=== PATIENT | male | born 1950 | race African-American/Black ===

== ENCOUNTER 2016-10-27 10:45 | Inpatient (IN) | payer MEDICARE, MEDICAID ==
[~2016-10-27] VITALS: Ht 165.1 cm; Wt 63.9 kg
[~2016-10-27 10:45] MED LIST: ASPI81 PO; BENZ1TAB10 PO; DIVA500T35 PO; PANT40TA25 PO; RISP2 PO
[2016-10-27 11:02] LABS: GLUCOSE,POINT OF CARE 89 MG/DL (70-110)
[2016-10-27] MEDS ORDERED: QUET300T2 PO (11:32)
[2016-10-27] MEDS ORDERED: LISI-662 PO (11:32)
[2016-10-27 11:45] LABS: BASOPHILS % (AUTO) 0.9 % (0.0-2.0); EOSINOPHILS % (AUTO) 2.4 % (1.0-6.0); HEMATOCRIT 46.7 % (41-53); LYMPHOCYTES # (AUTO) 2.9 K/uL (1.0-4.8); LYMPHOCYTES % (AUTO) 53.3 % (22.0-44.0); MEAN CORPUSCULAR HEMOGLOBIN 28.9 pg (26.0-34.0); MEAN CORPUSCULAR HGB CONC 32.2 G/dL (31.0-37.0); MEAN CORPUSCULAR VOLUME 90 fL (80-100); MONOCYTES # (AUTO) 0.5 K/uL (0.1-1.0); MONOCYTES % (AUTO) 8.8 % (2.0-9.0); NEUTROPHILS # (AUTO) 1.9 K/uL (1.8-7.7); NEUTROPHILS % (AUTO) 34.6 % (40.0-70.0); PLATELET COUNT (AUTO) 168 K/uL (150-450); RED BLOOD CELL COUNT(AUTO) 5.19 MIL/uL (4.50-5.90); RED CELL DISTRIBUTION WIDTH 14.2 % (11.5-14.5); WHITE BLOOD COUNT (AUTO) 5.5 K/uL (4.5-11.0)
[2016-10-27 11:56] LABS: ANION GAP 9 mmol/L (8-16); CALCIUM, TOTAL 9.1 mg/dL (8.8-10.5); CARBON DIOXIDE 24 mmol/L (22-29); CHLORIDE 103 mmol/L (98-107); CREATININE 1.04 mg/dL (0.60-1.30); GLOMERULAR FILTR. RATE CALC > 60 mL/min (>60); POTASSIUM 4.6 mmol/L (3.5-5.1); SODIUM SERUM 136 mmol/L (136-145); UREA NITROGEN, BLOOD 19 mg/dL (7-18)
[2016-10-27 12:02] LABS: ALANINE AMINOTRANSFERASE 59 U/L (12-78); ALBUMIN 3.5 g/dL (3.4-5.0); ASPARTATE AMINOTRANSFERASE 46 U/L (15-37); BILIRUBIN,TOTAL 0.3 mg/dL (0.1-1.0); TOTAL PROTEIN, SERUM 8.3 g/dL (6.4-8.2)
[2016-10-27] MEDS ORDERED: HALOPERIDOL 5 MG TABLET PO PRN (13:15)
[2016-10-27 18:19] VITALS: BP 145/73
[2016-10-27] MEDS: LORazepam 2 MG TABLET PO PRN (21:05)
[2016-10-28 03:30] VITALS: BP 152/75
[2016-10-28 08:00] VITALS: BP 124/67
[2016-10-28] MEDS ORDERED: ONDANSETRON HCL 4 MG TABLET PO PRN (08:30)
[2016-10-28] MEDS ORDERED: MAGNESIUM HYDROXIDE SUSPENSION 30 ML UDCUP PO PRN (08:30)
[2016-10-28] MEDS ORDERED: BACITRACIN 28.4 GM OINTMENT TP PRN (08:30)
[2016-10-28] MEDS ORDERED: ACETAMINOPHEN 325 MG TABLET PO PRN (08:30)
[2016-10-28] MEDS ORDERED: BENZOCAINE/MENTHOL LOZENGE MM PRN (08:30)
[2016-10-28] MEDS ORDERED: LOPERAMIDE HCL 2 MG CAPSULE PO PRN (08:30)
[2016-10-28] MEDS ORDERED: ALBUTEROL SULFATE HFA 90 MCG/PUFF 8 GM INHALER IH PRN (08:30)
[2016-10-28] MEDS ORDERED: CloNIDine HCL 0.1 MG TABLET PO PRN (08:30)
[2016-10-28] MEDS ORDERED: PETROLATUM,WHITE 71 GM JELLY TP PRN (08:30)
[2016-10-28] MEDS ORDERED: MAG HYDROX/AL HYDROX/SIMETH ES 30 ML SUSPENSION UDCUP PO PRN (08:30)
[2016-10-28] MEDS: ASPIRIN 81 MG CHEWABLE TABLET PO SCH (09:03)
[2016-10-28] MEDS: PANTOPRAZOLE SODIUM 40 MG DR TABLET PO SCH (09:03)
[2016-10-28] MEDS: LISINOPRIL 20 MG TABLET PO SCH (09:04)
[2016-10-28] MEDS: RisperiDONE 2 MG TABLET PO SCH (18:05)
[2016-10-28] MEDS: DIVALPROEX SODIUM 500 MG DR TABLET PO SCH (18:05)
[2016-10-28] MEDS: BENZTROPINE MESYLATE 1 MG TABLET PO SCH (18:06)
[2016-10-28 19:29] VITALS: BP 121/77
[2016-10-29 05:21] VITALS: BP 105/66
[2016-10-29 09:00] VITALS: BP 98/67
[2016-10-29] MEDS: LISINOPRIL 20 MG TABLET PO SCH (09:48)
[2016-10-29] MEDS: DIVALPROEX SODIUM 500 MG DR TABLET PO SCH ×2 (09:48→17:25)
[2016-10-29] MEDS: RisperiDONE 2 MG TABLET PO SCH ×2 (09:48→17:25)
[2016-10-29] MEDS: ASPIRIN 81 MG CHEWABLE TABLET PO SCH (09:49)
[2016-10-29] MEDS: BENZTROPINE MESYLATE 1 MG TABLET PO SCH ×2 (09:49→17:24)
[2016-10-29] MEDS: PANTOPRAZOLE SODIUM 40 MG DR TABLET PO SCH (09:49)
[2016-10-29 17:14] VITALS: BP 111/58
[2016-10-30 09:00] VITALS: BP 152/85
[2016-10-30] MEDS: RisperiDONE 2 MG TABLET PO SCH ×2 (09:45→17:02)
[2016-10-30] MEDS: LISINOPRIL 20 MG TABLET PO SCH (09:46)
[2016-10-30] MEDS: BENZTROPINE MESYLATE 1 MG TABLET PO SCH ×2 (09:46→17:02)
[2016-10-30] MEDS: ASPIRIN 81 MG CHEWABLE TABLET PO SCH (09:46)
[2016-10-30] MEDS: PANTOPRAZOLE SODIUM 40 MG DR TABLET PO SCH (09:46)
[2016-10-30] MEDS: DIVALPROEX SODIUM 500 MG DR TABLET PO SCH ×2 (09:46→17:02)
[2016-10-30 19:04] VITALS: BP 123/76
[2016-10-31] MEDS: PANTOPRAZOLE SODIUM 40 MG DR TABLET PO SCH (08:58)
[2016-10-31] MEDS: DIVALPROEX SODIUM 500 MG DR TABLET PO SCH ×2 (08:58→16:21)
[2016-10-31] MEDS: RisperiDONE 2 MG TABLET PO SCH ×2 (08:58→16:21)
[2016-10-31] MEDS: BENZTROPINE MESYLATE 1 MG TABLET PO SCH ×2 (08:58→16:22)
[2016-10-31] MEDS: ASPIRIN 81 MG CHEWABLE TABLET PO SCH (08:59)
[2016-10-31] MEDS: LISINOPRIL 20 MG TABLET PO SCH (08:59)
[2016-10-31 09:00] VITALS: BP 118/70
[2016-10-31 16:30] VITALS: BP 106/68
[2016-11-01 04:51] VITALS: BP 110/72
[2016-11-01] MEDS: LISINOPRIL 20 MG TABLET PO SCH (09:00)
[2016-11-01] MEDS: ASPIRIN 81 MG CHEWABLE TABLET PO SCH (09:14)
[2016-11-01] MEDS: PANTOPRAZOLE SODIUM 40 MG DR TABLET PO SCH (09:15)
[2016-11-01] MEDS: BENZTROPINE MESYLATE 1 MG TABLET PO SCH ×2 (09:15→16:36)
[2016-11-01] MEDS: RisperiDONE 2 MG TABLET PO SCH ×2 (09:15→16:36)
[2016-11-01] MEDS: DIVALPROEX SODIUM 500 MG DR TABLET PO SCH ×2 (09:15→16:36)
[2016-11-01 09:17] VITALS: BP 106/64
[2016-11-01] MEDS: IBUPROFEN 600 MG TABLET PO PRN ×2 (09:17→21:56)
[2016-11-01 18:24] VITALS: BP 114/71
[2016-11-01 22:01] VITALS: BP 119/69
[2016-11-02 08:07] VITALS: BP 127/79
[2016-11-02] MEDS: LISINOPRIL 20 MG TABLET PO SCH (09:07)
[2016-11-02] MEDS: PANTOPRAZOLE SODIUM 40 MG DR TABLET PO SCH (09:07)
[2016-11-02] MEDS: DIVALPROEX SODIUM 500 MG DR TABLET PO SCH ×2 (09:08→16:08)
[2016-11-02] MEDS: ASPIRIN 81 MG CHEWABLE TABLET PO SCH (09:08)
[2016-11-02] MEDS: BENZTROPINE MESYLATE 1 MG TABLET PO SCH ×2 (09:08→16:09)
[2016-11-02] MEDS: RisperiDONE 2 MG TABLET PO SCH ×2 (09:08→16:08)
[2016-11-02 16:10] VITALS: BP 107/66
[2016-11-02] MEDS: IBUPROFEN 600 MG TABLET PO PRN (16:12)
[2016-11-02] MEDS: ZOLPIDEM TARTRATE 10 MG TABLET PO PRN (21:38)
[2016-11-03] MEDS: ASPIRIN 81 MG CHEWABLE TABLET PO SCH (08:57)
[2016-11-03] MEDS: BENZTROPINE MESYLATE 1 MG TABLET PO SCH ×2 (08:57→16:36)
[2016-11-03] MEDS: LISINOPRIL 20 MG TABLET PO SCH (08:58)
[2016-11-03] MEDS: RisperiDONE 2 MG TABLET PO SCH ×2 (08:58→16:36)
[2016-11-03] MEDS: PANTOPRAZOLE SODIUM 40 MG DR TABLET PO SCH (08:58)
[2016-11-03] MEDS: DIVALPROEX SODIUM 500 MG DR TABLET PO SCH ×2 (08:58→16:36)
[2016-11-03 08:59] VITALS: BP 122/57
[2016-11-03] MEDS: IBUPROFEN 600 MG TABLET PO PRN (08:59)
[2016-11-03 17:17] VITALS: BP 139/87
[2016-11-03] MEDS: ZOLPIDEM TARTRATE 10 MG TABLET PO PRN (21:00)
[2016-11-04 09:02] VITALS: BP 117/70
[2016-11-04] MEDS: RisperiDONE 2 MG TABLET PO SCH (09:24)
[2016-11-04] MEDS: ASPIRIN 81 MG CHEWABLE TABLET PO SCH (09:24)
[2016-11-04] MEDS: DIVALPROEX SODIUM 500 MG DR TABLET PO SCH (09:24)
[2016-11-04] MEDS: LISINOPRIL 20 MG TABLET PO SCH (09:24)
[2016-11-04] MEDS: BENZTROPINE MESYLATE 1 MG TABLET PO SCH (09:24)
[2016-11-04] MEDS: LORazepam 2 MG TABLET PO PRN (09:24)
[2016-11-04] MEDS: PANTOPRAZOLE SODIUM 40 MG DR TABLET PO SCH (09:24)
[2016-11-04] MEDS ORDERED: DIVA500T35 PO (14:27)
[2016-11-04] MEDS ORDERED: BENZ1TAB10 PO (14:27)
[2016-11-04] MEDS ORDERED: PANT40TA25 PO (14:27)
[2016-11-04] MEDS ORDERED: RISP2 PO (14:27)
[2016-11-04] MEDS ORDERED: ASPI81 PO (14:27)
== END 2016-11-04 15:17 | disposition home or self-care (01) | DRG 750 ==
LOC: EMS 10:47 → EEVIPCON 10:47 → AHU 16:06 → 3EI 20:32
PROVIDERS: ADMIT Psychiatry & Neurology Psychiatry; ATTEND Psychiatry & Neurology Psychiatry
DX: F25.1 Schizoaffective disorder, depressive type (principal); I49.5 Sick sinus syndrome; R45.851 Suicidal ideations; G83.9 Paralytic syndrome, unspecified; E11.9 Type 2 diabetes mellitus without complications; I10 Essential (primary) hypertension; F12.90 Cannabis use, unspecified, uncomplicated; J44.9 Chronic obstructive pulmonary disease, unspecified; K21.9 Gastro-esophageal reflux disease without esophagitis; K59.00 Constipation, unspecified; F17.210 Nicotine dependence, cigarettes, uncomplicated; F60.9 Personality disorder, unspecified; Z71.6 Tobacco abuse counseling; Z86.73 Personal history of transient ischemic attack (TIA), and cerebral infarction without residual deficits; Z71.51 Drug abuse counseling and surveillance of drug abuser; Z91.14 Patient's other noncompliance with medication regimen; Z95.0 Presence of cardiac pacemaker; Z79.899 Other long term (current) drug therapy; Z56.0 Unemployment, unspecified; Z79.82 Long term (current) use of aspirin; Z72.89 Other problems related to lifestyle; Z71.41 Alcohol abuse counseling and surveillance of alcoholic; Z28.21 Immunization not carried out because of patient refusal; Z83.3 Family history of diabetes mellitus; Z82.49 Family history of ischemic heart disease and other diseases of the circulatory system
CPT/HCPCS: 82962; 99285; G0480; J3535; Q0162

== ENCOUNTER 2016-11-11 11:08 | Emergency (ER) | payer MEDICARE, OTHER ==
[~2016-11-11] VITALS: Ht 167.6 cm; Wt 63.0 kg
[~2016-11-11 11:08] MED LIST changes: +LISI-662 PO
[2016-11-11] MEDS ORDERED: LIDOCAINE HCL BUFFERED 1% 20 ML VIAL INJ ONE (12:00)
[2016-11-11 12:02] LABS: GLUCOSE,POINT OF CARE 103 MG/DL (70-110)
[2016-11-11 12:45] VITALS: BP 146/92
[2016-11-11] MEDS ORDERED: BACITRACIN 0.9 GM PACKET OINTMENT TP ONE (12:45)
== END 2016-11-11 13:17 | disposition home or self-care (01) ==
LOC: EMS 11:12
DX: S01.81XA Laceration without foreign body of other part of head, initial encounter (principal); E11.9 Type 2 diabetes mellitus without complications; I10 Essential (primary) hypertension; F17.210 Nicotine dependence, cigarettes, uncomplicated; Z79.82 Long term (current) use of aspirin; Y09 Assault by unspecified means; Y92.89 Other specified places as the place of occurrence of the external cause; Y99.8 Other external cause status
CPT/HCPCS: 12011; 82962; 99283; J3490

== ENCOUNTER 2017-06-08 11:29 | Inpatient (IN) | payer MEDICARE, OTHER ==
[~2017-06-08] VITALS: Ht 165.1 cm; Wt 71.2 kg
[2017-06-08] MEDS ORDERED: SODIUM CHLORIDE 0.9% 1,000 ML IV ONE ×3 (12:15→14:30)
[2017-06-08] MEDS ORDERED: NALOXONE HCL 1 MG/ML 2 ML SYG IVP ONE (12:15)
[2017-06-08 13:07] LABS: BASOPHILS # (AUTO) 0.03 K/uL (0.00-0.20); BASOPHILS % (AUTO) 0.6 % (0.0-2.0); EOSINOPHILS # (AUTO) 0.31 K/uL (0.00-0.70); EOSINOPHILS % (AUTO) 5.57 % (1.0-6.0); HEMATOCRIT 36.8 % (41-53); HEMOGLOBIN 12.3 g/dL (13.5-17.5); LYMPHOCYTES # (AUTO) 2.4 K/uL (1.0-4.8); LYMPHOCYTES % (AUTO) 43.8 % (22.0-44.0); MEAN CORPUSCULAR HEMOGLOBIN 30.2 pg (26.0-34.0); MEAN CORPUSCULAR HGB CONC 33.5 G/dL (31.0-37.0); MEAN CORPUSCULAR VOLUME 90 fL (80-100); MONOCYTES # (AUTO) 0.8 K/uL (0.1-1.0); MONOCYTES % (AUTO) 13.6 % (2.0-9.0); NEUTROPHILS % (AUTO) 36.4 % (40.0-70.0); PLATELET COUNT (AUTO) 123 K/uL (150-450); RED BLOOD CELL COUNT(AUTO) 4.09 MIL/uL (4.50-5.90); WHITE BLOOD COUNT (AUTO) 5.5 K/uL (4.5-11.0)
[2017-06-08 13:17] LABS: PROTHROMBIN TIME 10.7 SEC (9.4-11.6)
[2017-06-08 13:29] LABS: ANION GAP 11 mmol/L (8-16); CALCIUM, TOTAL 8.9 mg/dL (8.8-10.5); CARBON DIOXIDE 26 mmol/L (22-29); CHLORIDE 103 mmol/L (98-107); CREATININE 1.99 mg/dL (0.60-1.30); GLOMERULAR FILTR. RATE CALC 41 mL/min (>60); POTASSIUM 3.5 mmol/L (3.5-5.1); SODIUM SERUM 140 mmol/L (136-145); UREA NITROGEN, BLOOD 52 mg/dL (7-18)
[2017-06-08 13:36] LABS: ALANINE AMINOTRANSFERASE 32 U/L (12-78); ALBUMIN 3.7 g/dL (3.4-5.0); ASPARTATE AMINOTRANSFERASE 29 U/L (15-37); BILIRUBIN,TOTAL 0.5 mg/dL (0.1-1.0); TOTAL PROTEIN, SERUM 7.7 g/dL (6.4-8.2)
[2017-06-08 13:44] LABS: LACTIC ACID 2.4 mmol/L (0.4-2.0)
[2017-06-08 13:46] LABS: TROPONIN I < 0.02 ng/mL (0.00-0.05)
[2017-06-08 13:54] LABS: AMMONIA 41 umol/L (11-32)
[2017-06-08] MEDS: LACTULOSE 200 GM/300 ML RECTAL SOLUTION PR ONE ×2 (14:15→16:21)
[2017-06-08 14:27] LABS: VALPROIC ACID < 3 mcg/mL (50-100)
[2017-06-08] MEDS ORDERED: ACETAMINOPHEN 325 MG TABLET PO PRN (14:30)
[2017-06-08] MEDS ORDERED: ONDANSETRON HCL 4 MG/2 ML VIAL IVP PRN ×2 (14:30→21:30)
[2017-06-08] MEDS ORDERED: 0.9% SODIUM CHLORIDE 10 ML SYRINGE IVP PRN (14:30)
[2017-06-08 14:54] LABS: REFLEX LACTIC ACID? YES YES
[2017-06-08] MEDS ORDERED: CefTRIAXone 1 GM/DEXTROSE 50 ML IV ONE (15:00)
[2017-06-08 16:00] VITALS: BP 153/59
[2017-06-08 16:00] LABS: APPEARANCE,URINE CLOUDY (CLEAR); GLUCOSE, URINE (UA) NEGATIVE (NEGATIVE); KETONES,URINE NEGATIVE (NEGATIVE); LEUKOCYTE ESTERASE ,URINE NEGATIVE (NEGATIVE); OCCULT BLOOD,URINE NEGATIVE (NEGATIVE); PH,URINE 5.5 (5.0-8.0); PROTEIN,URINE NEGATIVE (NEGATIVE)
[2017-06-08 16:11] LABS: SQUAMOUS EPITHELIAL CELL,UR Few /LPF (None Seen)
[2017-06-08 16:19] LABS: RBC,URINE 0-2 /HPF (0-2)
[2017-06-08] MEDS: RINGERS SOLUTION,LACTATED 1,000 ML IV SCH (16:20)
[2017-06-08] MEDS: ALBUMIN HUMAN 25%-25GM/100ML 100 ML IV SCH (17:05)
[2017-06-08 17:44] LABS: PROCALCITONIN (PCT) 0.14 ng/mL (<0.50)
[2017-06-08] MEDS ORDERED: DEXTROSE 50%-WATER 25 GM/50 ML SYRINGE IVP PRN (17:45)
[2017-06-08] MEDS ORDERED: LACTULOSE 20 GM/30 ML SOLUTION UDCUP PO ONE (17:45)
[2017-06-08 17:49] LABS: GLUCOSE,POINT OF CARE 98 MG/DL (70-110)
[2017-06-08] MEDS ORDERED: -PHARMACY VACCINE NOTE- MISC ONE ×2 (19:15)
[2017-06-08 20:00] VITALS: BP 117/70
[2017-06-08] MEDS ORDERED: IPRATROPIUM BROMIDE 0.5 MG/2.5 ML NEB SOLUTION NEB PRN (21:30)
[2017-06-08] MEDS ORDERED: ZOLPIDEM TARTRATE 5 MG TABLET PO PRN (21:30)
[2017-06-08] MEDS ORDERED: ALBUTEROL SULFATE 2.5 MG/0.5 ML NEB SOLUTION NEB PRN (21:30)
[2017-06-08] MEDS ORDERED: MAGNESIUM HYDROXIDE SUSPENSION 30 ML UDCUP PO PRN (21:30)
[2017-06-08] MEDS ORDERED: BISACODYL 10 MG RECTAL RECTAL SUPPOSITORY PR PRN (21:30)
[2017-06-09] VITALS (7 sets, daily range): BP systolic 102–156; BP diastolic 65–94
[2017-06-09] MEDS: ALBUMIN HUMAN 25%-25GM/100ML 100 ML IV SCH ×4 (00:05→23:26)
[2017-06-09] MEDS: RINGERS SOLUTION,LACTATED 1,000 ML IV SCH ×2 (04:18→17:44)
[2017-06-09 06:09] LABS: ANION GAP 8 mmol/L (8-16); CALCIUM, TOTAL 8.4 mg/dL (8.8-10.5); CARBON DIOXIDE 25 mmol/L (22-29); CHLORIDE 111 mmol/L (98-107); CHOL/HDL RATIO 2.1 (4.2-7.3); CREATINE KINASE, TOTAL 401 U/L (39-308); CREATININE 1.09 mg/dL (0.60-1.30); GLOMERULAR FILTR. RATE CALC > 60 mL/min (>60); POTASSIUM 3.7 mmol/L (3.5-5.1); SODIUM SERUM 144 mmol/L (136-145); UREA NITROGEN, BLOOD 27 mg/dL (7-18)
[2017-06-09 06:24] LABS: BASOPHILS % (AUTO) 0.5 % (0.0-2.0); EOSINOPHILS % (AUTO) 4.6 % (1.0-6.0); HEMATOCRIT 34.2 % (41-53); HEMOGLOBIN 11.4 g/dL (13.5-17.5); LYMPHOCYTES # (AUTO) 2.1 K/uL (1.0-4.8); LYMPHOCYTES % (AUTO) 45.8 % (22.0-44.0); MEAN CORPUSCULAR HEMOGLOBIN 30.6 pg (26.0-34.0); MEAN CORPUSCULAR HGB CONC 33.3 G/dL (31.0-37.0); MEAN CORPUSCULAR VOLUME 92 fL (80-100); MONOCYTES # (AUTO) 0.5 K/uL (0.1-1.0); MONOCYTES % (AUTO) 11.5 % (2.0-9.0); NEUTROPHILS # (AUTO) 1.7 K/uL (1.8-7.7); NEUTROPHILS % (AUTO) 37.6 % (40.0-70.0); PLATELET COUNT (AUTO) 117 K/uL (150-450); RED BLOOD CELL COUNT(AUTO) 3.72 MIL/uL (4.50-5.90); RED CELL DISTRIBUTION WIDTH 15.7 % (11.5-14.5); WHITE BLOOD COUNT (AUTO) 4.5 K/uL (4.5-11.0)
[2017-06-09 06:53] LABS: GLUCOSE,POINT OF CARE 108 MG/DL (70-110)
[2017-06-09 06:53] LABS: GLUCOSE,POINT OF CARE 93 MG/DL (70-110)
[2017-06-09] MEDS: OXYGEN THERAPY IH SCH ×2 (08:00→20:00)
[2017-06-09] MEDS: PANTOPRAZOLE SODIUM 40 MG/VIAL IVP SCH (08:13)
[2017-06-09] MEDS: ASPIRIN 81 MG CHEWABLE TABLET PO SCH (08:14)
[2017-06-09] MEDS: LACTULOSE 20 GM/30 ML SOLUTION UDCUP PO SCH ×2 (08:14→21:22)
[2017-06-09] MEDS: HEPARIN SODIUM,PORCINE 5,000 UNITS/ML VIAL SQ SCH ×2 (08:14→21:22)
[2017-06-09 10:19] LABS: B-TYPE NATRIURETIC PEPTIDE 38 pg/mL (0-100)
[2017-06-09] MEDS: INSULIN ASPART 100 UNITS/ML SQ PRN (12:27)
[2017-06-09 13:28] LABS: GLUCOSE COMMENT 1 Received Meds; GLUCOSE,POINT OF CARE 289 MG/DL (70-110)
[2017-06-09] MEDS: ACETAMINOPHEN 500 MG TABLET PO PRN (15:36)
[2017-06-09] MEDS: CefTRIAXone 1 GM/DEXTROSE 50 ML IV SCH (15:38)
[2017-06-09] MEDS ORDERED: SODIUM CHLORIDE 0.9% 250 ML IV ONE (15:43)
[2017-06-10 02:17] LABS: GLUCOSE,POINT OF CARE 97 MG/DL (70-110)
[2017-06-10 04:00] VITALS: BP 124/64
[2017-06-10 05:22] LABS: AMMONIA 34 umol/L (11-32)
[2017-06-10 05:39] LABS: ANION GAP 8 mmol/L (8-16); CALCIUM, TOTAL 8.8 mg/dL (8.8-10.5); CARBON DIOXIDE 26 mmol/L (22-29); CHLORIDE 110 mmol/L (98-107); CREATINE KINASE MB 1.4 ng/mL (0-5); CREATINE KINASE, TOTAL 254 U/L (39-308); CREATININE 0.99 mg/dL (0.60-1.30); GLOMERULAR FILTR. RATE CALC > 60 mL/min (>60); POTASSIUM 4.1 mmol/L (3.5-5.1); SODIUM SERUM 144 mmol/L (136-145); UREA NITROGEN, BLOOD 19 mg/dL (7-18)
[2017-06-10 05:57] LABS: BASOPHILS # (AUTO) 0.02 K/uL (0.00-0.20); BASOPHILS % (AUTO) 0.6 % (0.0-2.0); EOSINOPHILS # (AUTO) 0.15 K/uL (0.00-0.70); EOSINOPHILS % (AUTO) 3.96 % (1.0-6.0); HEMATOCRIT 32.8 % (41-53); HEMOGLOBIN 11.1 g/dL (13.5-17.5); LYMPHOCYTES # (AUTO) 2.2 K/uL (1.0-4.8); LYMPHOCYTES % (AUTO) 57.7 % (22.0-44.0); MEAN CORPUSCULAR HEMOGLOBIN 30.7 pg (26.0-34.0); MEAN CORPUSCULAR HGB CONC 33.8 G/dL (31.0-37.0); MEAN CORPUSCULAR VOLUME 91 fL (80-100); MONOCYTES # (AUTO) 0.5 K/uL (0.1-1.0); MONOCYTES % (AUTO) 12.3 % (2.0-9.0); NEUTROPHILS % (AUTO) 25.5 % (40.0-70.0); PLATELET COUNT (AUTO) 103 K/uL (150-450); RED BLOOD CELL COUNT(AUTO) 3.61 MIL/uL (4.50-5.90); RED CELL DISTRIBUTION WIDTH 15.5 % (11.5-14.5); TROPONIN I < 0.02 ng/mL (0.00-0.05); WHITE BLOOD COUNT (AUTO) 3.9 K/uL (4.5-11.0)
[2017-06-10] MEDS: RINGERS SOLUTION,LACTATED 1,000 ML IV SCH ×2 (06:09→20:28)
[2017-06-10] MEDS: INSULIN ASPART 100 UNITS/ML SQ PRN (06:11)
[2017-06-10 07:06] VITALS: BP 122/68
[2017-06-10] MEDS: ASPIRIN 81 MG CHEWABLE TABLET PO SCH (07:53)
[2017-06-10] MEDS: HEPARIN SODIUM,PORCINE 5,000 UNITS/ML VIAL SQ SCH ×2 (07:53→20:29)
[2017-06-10] MEDS: PANTOPRAZOLE SODIUM 40 MG/VIAL IVP SCH (07:53)
[2017-06-10] MEDS: LACTULOSE 20 GM/30 ML SOLUTION UDCUP PO SCH ×2 (07:53→20:28)
[2017-06-10] MEDS: OXYGEN THERAPY IH SCH ×2 (07:54→20:00)
[2017-06-10 08:11] LABS: HEPATITIS Bs ANTIGEN SCREEN P Negative (Negative); HEPATITIS C AB SCREEN 0.1 s/co ratio (0.0-0.9)
[2017-06-10] MEDS: ALBUMIN HUMAN 25%-25GM/100ML 100 ML IV SCH ×2 (08:52→16:15)
[2017-06-10 11:23] VITALS: BP 137/76
[2017-06-10] MEDS ORDERED: SODIUM CHLORIDE 0.9% IRRIG BTL 1,000 ML IRRIG ONE (12:22)
[2017-06-10 15:40] VITALS: BP 134/71
[2017-06-10] MEDS: CefTRIAXone 1 GM/DEXTROSE 50 ML IV SCH (15:41)
[2017-06-10 19:54] VITALS: BP 144/76
[2017-06-10 20:17] LABS: GLUCOSE,POINT OF CARE 92 MG/DL (70-110)
[2017-06-10 20:17] LABS: GLUCOSE COMMENT 1 Received Meds; GLUCOSE,POINT OF CARE 149 MG/DL (70-110)
[2017-06-10 20:28] LABS: GLUCOSE COMMENT 1 Received Meds; GLUCOSE,POINT OF CARE 142 MG/DL (70-110)
[2017-06-10 20:28] LABS: GLUCOSE COMMENT 1 Received Meds; GLUCOSE,POINT OF CARE 113 MG/DL (70-110)
[2017-06-10] MEDS: RisperiDONE 2 MG TABLET PO SCH (20:28)
[2017-06-10] MEDS: BENZTROPINE MESYLATE 1 MG TABLET PO SCH (20:29)
[2017-06-10] MEDS: DIVALPROEX SODIUM 500 MG DR TABLET PO SCH (20:29)
[2017-06-11 00:30] VITALS: BP 138/70
[2017-06-11] MEDS: ALBUMIN HUMAN 25%-25GM/100ML 100 ML IV SCH ×2 (01:01→07:56)
[2017-06-11 01:28] LABS: GLUCOSE,POINT OF CARE 138 MG/DL (70-110)
[2017-06-11 05:17] VITALS: BP 155/81
[2017-06-11 06:24] LABS: BASOPHILS # (AUTO) 0.04 K/uL (0.00-0.20); BASOPHILS % (AUTO) 0.8 % (0.0-2.0); EOSINOPHILS # (AUTO) 0.22 K/uL (0.00-0.70); EOSINOPHILS % (AUTO) 4.66 % (1.0-6.0); HEMATOCRIT 32.4 % (41-53); HEMOGLOBIN 10.8 g/dL (13.5-17.5); LYMPHOCYTES # (AUTO) 2.6 K/uL (1.0-4.8); LYMPHOCYTES % (AUTO) 53.8 % (22.0-44.0); MEAN CORPUSCULAR HEMOGLOBIN 30.5 pg (26.0-34.0); MEAN CORPUSCULAR HGB CONC 33.3 G/dL (31.0-37.0); MEAN CORPUSCULAR VOLUME 92 fL (80-100); MONOCYTES # (AUTO) 0.5 K/uL (0.1-1.0); MONOCYTES % (AUTO) 11.3 % (2.0-9.0); NEUTROPHILS # (AUTO) 1.4 K/uL (1.8-7.7); NEUTROPHILS % (AUTO) 29.4 % (40.0-70.0); PLATELET COUNT (AUTO) 111 K/uL (150-450); RED BLOOD CELL COUNT(AUTO) 3.53 MIL/uL (4.50-5.90); RED CELL DISTRIBUTION WIDTH 15.3 % (11.5-14.5); WHITE BLOOD COUNT (AUTO) 4.8 K/uL (4.5-11.0)
[2017-06-11 06:28] LABS: ANION GAP 8 mmol/L (8-16); CALCIUM, TOTAL 8.6 mg/dL (8.8-10.5); CARBON DIOXIDE 27 mmol/L (22-29); CHLORIDE 109 mmol/L (98-107); GLOMERULAR FILTR. RATE CALC > 60 mL/min (>60); POTASSIUM 3.5 mmol/L (3.5-5.1); SODIUM SERUM 144 mmol/L (136-145); UREA NITROGEN, BLOOD 17 mg/dL (7-18)
[2017-06-11] MEDS: BENZTROPINE MESYLATE 1 MG TABLET PO SCH (07:55)
[2017-06-11] MEDS: RisperiDONE 2 MG TABLET PO SCH (07:55)
[2017-06-11] MEDS: ASPIRIN 81 MG CHEWABLE TABLET PO SCH (07:55)
[2017-06-11] MEDS: DIVALPROEX SODIUM 500 MG DR TABLET PO SCH (07:55)
[2017-06-11] MEDS: OXYGEN THERAPY IH SCH (07:56)
[2017-06-11] MEDS: PANTOPRAZOLE SODIUM 40 MG/VIAL IVP SCH (07:56)
[2017-06-11] MEDS: HEPARIN SODIUM,PORCINE 5,000 UNITS/ML VIAL SQ SCH (07:56)
[2017-06-11] MEDS: LACTULOSE 20 GM/30 ML SOLUTION UDCUP PO SCH (07:58)
[2017-06-11 08:04] VITALS: BP 149/78
[2017-06-11] MEDS: ACETAMINOPHEN 500 MG TABLET PO PRN (09:43)
[2017-06-11 11:02] VITALS: BP 126/88
[2017-06-11] MEDS: RINGERS SOLUTION,LACTATED 1,000 ML IV SCH (11:31)
[2017-06-11] MEDS ORDERED: LISI-661 PO ×2 (12:56→12:59)
[2017-06-11] MEDS ORDERED: DOXY100C PO (12:59)
[2017-06-11] MEDS ORDERED: LACT30L PO (12:59)
[2017-06-11 15:01] VITALS: BP 140/61
[2017-06-11 17:27] LABS: GLUCOSE,POINT OF CARE 109 MG/DL (70-110)
[2017-06-11 20:43] LABS: GLUCOSE,POINT OF CARE 100 MG/DL (70-110)
[2017-06-11] MEDS ORDERED: DOXYCYCLINE 100 MG CAPSULE PO SCH (21:00)
== END 2017-06-11 17:55 | disposition home or self-care (01) | DRG 871 ==
LOC: EMS 11:31 → ICU 14:32 → 5N 06-09 11:20
PROVIDERS: ADMIT Internal Medicine Geriatric Medicine; ATTEND Internal Medicine Geriatric Medicine
DX: A41.9 Sepsis, unspecified organism (principal); K72.00 Acute and subacute hepatic failure without coma; N17.9 Acute kidney failure, unspecified; D61.818 Other pancytopenia; N39.0 Urinary tract infection, site not specified; F20.0 Paranoid schizophrenia; N18.9 Chronic kidney disease, unspecified; E11.22 Type 2 diabetes mellitus with diabetic chronic kidney disease; F12.90 Cannabis use, unspecified, uncomplicated; F17.210 Nicotine dependence, cigarettes, uncomplicated; I12.9 Hypertensive chronic kidney disease with stage 1 through stage 4 chronic kidney disease, or unspecified chronic kidney disease; J44.9 Chronic obstructive pulmonary disease, unspecified; F15.90 Other stimulant use, unspecified, uncomplicated; D64.9 Anemia, unspecified; K21.9 Gastro-esophageal reflux disease without esophagitis; R62.7 Adult failure to thrive; Z86.73 Personal history of transient ischemic attack (TIA), and cerebral infarction without residual deficits; Z95.0 Presence of cardiac pacemaker; Z79.82 Long term (current) use of aspirin
CPT/HCPCS: 51701; 70450; 80074; 82306; 82533; 82607; 82746; 82948; 82962; 83036; 83605; 83735; 84145; 84439; 87040; 87081; 87086; 93005; 93306; 96361; 96374; 97116; 97162; 97530; 99285; C9113; G0480; J0696; J1644; J2310; J7030; J7050; J7120; P9046

== ENCOUNTER 2017-07-24 21:38 | Inpatient (IN) | payer MEDICARE, OTHER ==
[~2017-07-24] VITALS: Ht 175.3 cm; Wt 70.6 kg
[~2017-07-24 21:38] MED LIST changes: +DOXY100C PO; +LACT30L PO; +LISI-661 PO; -LISI-662 PO
[2017-07-24] MEDS ORDERED: LORazepam 2 MG/ML VIAL ONE (21:46)
[2017-07-24] MEDS ORDERED: PANT40TA25 PO (22:01)
[2017-07-24] MEDS ORDERED: LISI-618 PO (22:01)
[2017-07-24] MEDS ORDERED: QUET300T71 PO (22:01)
[2017-07-24] MEDS ORDERED: NAPR-58 PO (22:01)
[2017-07-24] MEDS ORDERED: LACT10SO75 PO (22:01)
[2017-07-24] MEDS ORDERED: LISI10TA7 PO (22:01)
[2017-07-25 01:07] LABS: APPEARANCE,URINE CLEAR (CLEAR); GLUCOSE, URINE (UA) NEGATIVE (NEGATIVE); KETONES,URINE NEGATIVE (NEGATIVE); LEUKOCYTE ESTERASE ,URINE NEGATIVE (NEGATIVE); OCCULT BLOOD,URINE NEGATIVE (NEGATIVE); PROTEIN,URINE NEGATIVE (NEGATIVE)
[2017-07-25 01:11] LABS: ADD UA MICROSCOPIC NO
[2017-07-25] MEDS ORDERED: SODIUM CHLORIDE 0.9% 1,000 ML IV ONE (01:45)
[2017-07-25 01:56] LABS: TROPONIN I 0.06 ng/mL (0.00-0.05)
[2017-07-25 02:11] LABS: BASOPHILS % (AUTO) 0.2 % (0.0-2.0); EOSINOPHILS % (AUTO) 0 % (1.0-6.0); HEMATOCRIT 40.2 % (41-53); HEMOGLOBIN 13.5 g/dL (13.5-17.5); LYMPHOCYTES # (AUTO) 1.2 K/uL (1.0-4.8); LYMPHOCYTES % (AUTO) 10.3 % (22.0-44.0); MEAN CORPUSCULAR HEMOGLOBIN 30.6 pg (26.0-34.0); MEAN CORPUSCULAR HGB CONC 33.6 G/dL (31.0-37.0); MEAN CORPUSCULAR VOLUME 91 fL (80-100); MONOCYTES # (AUTO) 1.3 K/uL (0.1-1.0); MONOCYTES % (AUTO) 11.5 % (2.0-9.0); PLATELET COUNT (AUTO) 154 K/uL (150-450); RED BLOOD CELL COUNT(AUTO) 4.41 MIL/uL (4.50-5.90); RED CELL DISTRIBUTION WIDTH 15.5 % (11.5-14.5); WHITE BLOOD COUNT (AUTO) 11.6 K/uL (4.5-11.0)
[2017-07-25 02:18] LABS: ANION GAP 13 mmol/L (8-16); CALCIUM, TOTAL 8.3 mg/dL (8.8-10.5); CARBON DIOXIDE 21 mmol/L (22-29); CHLORIDE 105 mmol/L (98-107); CREATININE 2.71 mg/dL (0.60-1.30); GLOMERULAR FILTR. RATE CALC 29 mL/min (>60); POTASSIUM 4.8 mmol/L (3.5-5.1); SODIUM SERUM 139 mmol/L (136-145); UREA NITROGEN, BLOOD 47 mg/dL (7-18)
[2017-07-25 02:26] LABS: LACTIC ACID 1.3 mmol/L (0.4-2.0)
[2017-07-25] MEDS ORDERED: *CLINICAL-CEFEPIME DOSING CLINICAL ONE ×2 (02:30)
[2017-07-25 02:35] LABS: ALANINE AMINOTRANSFERASE 75 U/L (12-78); ALBUMIN 3.5 g/dL (3.4-5.0); ASPARTATE AMINOTRANSFERASE 264 U/L (15-37); BILIRUBIN,TOTAL 0.7 mg/dL (0.1-1.0); THYROID STIMULATING HORMONE 3.13 uIU/mL (0.36-3.74); TOTAL PROTEIN, SERUM 7.2 g/dL (6.4-8.2)
[2017-07-25 02:36] LABS: ACETAMINOPHEN < 2 mcg/mL (10-30)
[2017-07-25 02:42] LABS: INR 1.1 (0.9-1.1); PROTHROMBIN TIME 11.2 SEC (9.4-11.6)
[2017-07-25] MEDS ORDERED: ACETAMINOPHEN 325 MG TABLET PO PRN ×2 (03:00→06:30)
[2017-07-25] MEDS ORDERED: 0.9% SODIUM CHLORIDE 10 ML SYRINGE IVP PRN (03:00)
[2017-07-25] MEDS ORDERED: ONDANSETRON HCL 4 MG/2 ML VIAL IVP PRN ×2 (03:00→06:30)
[2017-07-25] MEDS ORDERED: VANCOMYCIN HCL 750 MG in DEXTROSE 5%-WATER 150 ML IV ONE (03:00)
[2017-07-25 03:08] LABS: CREATINE KINASE MB 207.8 ng/mL (0-5)
[2017-07-25 03:09] LABS: CREATINE KINASE, TOTAL 16725 U/L (39-308)
[2017-07-25 03:51] VITALS: BP 107/69
[2017-07-25] MEDS ORDERED: CEFEPIME HCL 2 GM in DEXTROSE 5%-WATER 50 ML IV ONE (04:00)
[2017-07-25 05:25] VITALS: BP 120/82
[2017-07-25] MEDS ORDERED: MAGNESIUM SULFATE 2 GM, MVI, ADULT NO.1 WITH VIT K 10 ML, THIAMINE HCL 100 MG, FOLIC AC... IV ONE ×5 (06:00)
[2017-07-25] MEDS ORDERED: *CLINICAL-LEVOFLOXACIN IVPB DOSING CLINICAL ONE ×2 (06:30)
[2017-07-25] MEDS ORDERED: ZOLPIDEM TARTRATE 5 MG TABLET PO PRN (06:30)
[2017-07-25] MEDS ORDERED: MAGNESIUM HYDROXIDE SUSPENSION 30 ML UDCUP PO PRN (06:30)
[2017-07-25] MEDS ORDERED: BISACODYL 10 MG RECTAL RECTAL SUPPOSITORY PR PRN (06:30)
[2017-07-25 07:08] VITALS: BP 119/70
[2017-07-25] MEDS ORDERED: VANCOMYCIN HCL 750 MG in DEXTROSE 5%-WATER 150 ML IV SCH (08:00)
[2017-07-25] MEDS: HEPARIN SODIUM,PORCINE 5,000 UNITS/ML VIAL SQ SCH ×3 (08:24→23:54)
[2017-07-25] MEDS: LACTOBACILLUS ACIDOPHILUS/BULGARICUS GRANULES PACKET PO SCH ×3 (08:24→21:00)
[2017-07-25] MEDS: PANTOPRAZOLE SODIUM 40 MG DR TABLET PO SCH (08:25)
[2017-07-25] MEDS ORDERED: LEVOFLOXACIN 750 MG/D5% WATER 150 ML IV SCH (09:00)
[2017-07-25] MEDS ORDERED: SODIUM CHLORIDE 0.9% 250 ML IV ONE (09:12)
[2017-07-25 11:23] VITALS: BP 114/72
[2017-07-25 15:26] VITALS: BP 114/72
[2017-07-25 19:24] VITALS: BP 113/75
[2017-07-26 00:22] VITALS: BP 112/69
[2017-07-26 03:40] VITALS: BP 118/77
[2017-07-26 06:08] LABS: BASOPHILS # (AUTO) 0.02 K/uL (0.00-0.20); BASOPHILS % (AUTO) 0.2 % (0.0-2.0); EOSINOPHILS % (AUTO) 1.32 % (1.0-6.0); HEMATOCRIT 45.7 % (41-53); HEMOGLOBIN 14.8 g/dL (13.5-17.5); LYMPHOCYTES # (AUTO) 1.9 K/uL (1.0-4.8); LYMPHOCYTES % (AUTO) 24.3 % (22.0-44.0); MEAN CORPUSCULAR HGB CONC 32.5 G/dL (31.0-37.0); MEAN CORPUSCULAR VOLUME 92 fL (80-100); MONOCYTES # (AUTO) 0.8 K/uL (0.1-1.0); MONOCYTES % (AUTO) 10.5 % (2.0-9.0); NEUTROPHILS # (AUTO) 4.9 K/uL (1.8-7.7); NEUTROPHILS % (AUTO) 63.7 % (40.0-70.0); PLATELET COUNT (AUTO) 156 K/uL (150-450); RED BLOOD CELL COUNT(AUTO) 4.95 MIL/uL (4.50-5.90); RED CELL DISTRIBUTION WIDTH 15.7 % (11.5-14.5); WHITE BLOOD COUNT (AUTO) 7.7 K/uL (4.5-11.0)
[2017-07-26 06:29] LABS: ALANINE AMINOTRANSFERASE 210 U/L (12-78); ALBUMIN 2.8 g/dL (3.4-5.0); ANION GAP 11 mmol/L (8-16); BILIRUBIN,TOTAL 0.4 mg/dL (0.1-1.0); CALCIUM, TOTAL 8.5 mg/dL (8.8-10.5); CARBON DIOXIDE 23 mmol/L (22-29); CHLORIDE 109 mmol/L (98-107); GLOMERULAR FILTR. RATE CALC > 60 mL/min (>60); POTASSIUM 4.1 mmol/L (3.5-5.1); SODIUM SERUM 143 mmol/L (136-145); TOTAL PROTEIN, SERUM 7.3 g/dL (6.4-8.2); UREA NITROGEN, BLOOD 37 mg/dL (7-18)
[2017-07-26 06:44] LABS: ASPARTATE AMINOTRANSFERASE 1041 U/L (15-37)
[2017-07-26 07:03] VITALS: BP 117/54
[2017-07-26 07:05] LABS: CREATINE KINASE, TOTAL 48936 U/L (39-308)
[2017-07-26 07:29] LABS: CREATINE KINASE MB < 0.5 ng/mL (0-5)
[2017-07-26] MEDS: PANTOPRAZOLE SODIUM 40 MG DR TABLET PO SCH (08:08)
[2017-07-26] MEDS: HEPARIN SODIUM,PORCINE 5,000 UNITS/ML VIAL SQ SCH ×3 (08:08→23:30)
[2017-07-26] MEDS: LACTOBACILLUS ACIDOPHILUS/BULGARICUS GRANULES PACKET PO SCH ×3 (08:08→20:15)
[2017-07-26] MEDS: LEVOFLOXACIN 750 MG/D5% WATER 150 ML IV SCH (09:17)
[2017-07-26] MEDS: SODIUM BICARBONATE 75 MEQ in DEXTROSE 5%-0.45% SODIUM CHL 1,000 ML IV SCH (11:09)
[2017-07-26 11:17] VITALS: BP 124/76
[2017-07-26 15:02] VITALS: BP 124/91
[2017-07-26 17:18] LABS: CREATINE KINASE MB 116.6 ng/mL (0-5)
[2017-07-26 19:31] VITALS: BP 133/62
[2017-07-27 00:16] VITALS: BP 130/67
[2017-07-27 04:32] VITALS: BP 129/76
[2017-07-27] MEDS: SODIUM BICARBONATE 75 MEQ in DEXTROSE 5%-0.45% SODIUM CHL 1,000 ML IV SCH (05:11)
[2017-07-27 06:10] LABS: BASOPHILS # (AUTO) 0.03 K/uL (0.00-0.20); BASOPHILS % (AUTO) 0.5 % (0.0-2.0); EOSINOPHILS # (AUTO) 0.11 K/uL (0.00-0.70); EOSINOPHILS % (AUTO) 1.76 % (1.0-6.0); HEMATOCRIT 43.2 % (41-53); HEMOGLOBIN 14.1 g/dL (13.5-17.5); LYMPHOCYTES # (AUTO) 2.2 K/uL (1.0-4.8); LYMPHOCYTES % (AUTO) 34.7 % (22.0-44.0); MEAN CORPUSCULAR HEMOGLOBIN 30.2 pg (26.0-34.0); MEAN CORPUSCULAR HGB CONC 32.6 G/dL (31.0-37.0); MEAN CORPUSCULAR VOLUME 93 fL (80-100); MONOCYTES # (AUTO) 0.7 K/uL (0.1-1.0); MONOCYTES % (AUTO) 10.3 % (2.0-9.0); NEUTROPHILS # (AUTO) 3.4 K/uL (1.8-7.7); NEUTROPHILS % (AUTO) 52.8 % (40.0-70.0); PLATELET COUNT (AUTO) 154 K/uL (150-450); RED BLOOD CELL COUNT(AUTO) 4.65 MIL/uL (4.50-5.90); RED CELL DISTRIBUTION WIDTH 15.7 % (11.5-14.5); WHITE BLOOD COUNT (AUTO) 6.4 K/uL (4.5-11.0)
[2017-07-27 06:19] LABS: ALANINE AMINOTRANSFERASE 174 U/L (12-78); ALBUMIN 2.6 g/dL (3.4-5.0); ANION GAP 7 mmol/L (8-16); ASPARTATE AMINOTRANSFERASE 656 U/L (15-37); BILIRUBIN,TOTAL 0.3 mg/dL (0.1-1.0); CALCIUM, TOTAL 8.7 mg/dL (8.8-10.5); CARBON DIOXIDE 27 mmol/L (22-29); CHLORIDE 108 mmol/L (98-107); CREATININE 0.94 mg/dL (0.60-1.30); GLOMERULAR FILTR. RATE CALC > 60 mL/min (>60); SODIUM SERUM 142 mmol/L (136-145); TOTAL PROTEIN, SERUM 6.7 g/dL (6.4-8.2); UREA NITROGEN, BLOOD 21 mg/dL (7-18)
[2017-07-27 07:24] VITALS: BP 159/87
[2017-07-27 07:31] LABS: CREATINE KINASE MB 37.4 ng/mL (0-5)
[2017-07-27 07:40] LABS: CREATINE KINASE, TOTAL 27314 U/L (39-308)
[2017-07-27] MEDS: LEVOFLOXACIN 750 MG/D5% WATER 150 ML IV SCH (08:23)
[2017-07-27] MEDS: LACTOBACILLUS ACIDOPHILUS/BULGARICUS GRANULES PACKET PO SCH ×3 (08:23→20:41)
[2017-07-27] MEDS: PANTOPRAZOLE SODIUM 40 MG DR TABLET PO SCH (08:23)
[2017-07-27] MEDS: HEPARIN SODIUM,PORCINE 5,000 UNITS/ML VIAL SQ SCH ×3 (08:40→23:40)
[2017-07-27 11:03] VITALS: BP 136/80
[2017-07-27 16:06] VITALS: BP 142/73
[2017-07-27] MEDS: SODIUM CHLORIDE 0.45% 1,000 ML IV SCH ×2 (16:11→23:40)
[2017-07-27 19:54] VITALS: BP_SYST 150; BP_DIAS 70; BP_DIAS 80
[2017-07-28 00:43] VITALS: BP 148/75
[2017-07-28 04:41] VITALS: BP 135/89
[2017-07-28 06:40] LABS: BASOPHILS % (AUTO) 0.7 % (0.0-2.0); HEMOGLOBIN 13.3 g/dL (13.5-17.5); LYMPHOCYTES # (AUTO) 2.2 K/uL (1.0-4.8); LYMPHOCYTES % (AUTO) 41.5 % (22.0-44.0); MEAN CORPUSCULAR HEMOGLOBIN 30.7 pg (26.0-34.0); MEAN CORPUSCULAR HGB CONC 33.3 G/dL (31.0-37.0); MEAN CORPUSCULAR VOLUME 92 fL (80-100); MONOCYTES # (AUTO) 0.5 K/uL (0.1-1.0); MONOCYTES % (AUTO) 9.5 % (2.0-9.0); NEUTROPHILS # (AUTO) 2.3 K/uL (1.8-7.7); NEUTROPHILS % (AUTO) 45.3 % (40.0-70.0); PLATELET COUNT (AUTO) 156 K/uL (150-450); RED BLOOD CELL COUNT(AUTO) 4.34 MIL/uL (4.50-5.90); RED CELL DISTRIBUTION WIDTH 15.2 % (11.5-14.5); WHITE BLOOD COUNT (AUTO) 5.2 K/uL (4.5-11.0)
[2017-07-28 07:29] LABS: ALANINE AMINOTRANSFERASE 174 U/L (12-78); ALBUMIN 2.5 g/dL (3.4-5.0); ANION GAP 10 mmol/L (8-16); ASPARTATE AMINOTRANSFERASE 547 U/L (15-37); BILIRUBIN,TOTAL 0.3 mg/dL (0.1-1.0); CALCIUM, TOTAL 8.9 mg/dL (8.8-10.5); CARBON DIOXIDE 25 mmol/L (22-29); CHLORIDE 105 mmol/L (98-107); CREATININE 0.81 mg/dL (0.60-1.30); GLOMERULAR FILTR. RATE CALC > 60 mL/min (>60); PHOSPHORUS 3.7 mg/dL (2.5-4.9); POTASSIUM 3.6 mmol/L (3.5-5.1); SODIUM SERUM 140 mmol/L (136-145); TOTAL PROTEIN, SERUM 6.2 g/dL (6.4-8.2); UREA NITROGEN, BLOOD 17 mg/dL (7-18)
[2017-07-28 07:31] VITALS: BP 139/79
[2017-07-28] MEDS ORDERED: MAGNESIUM SULFATE 2 GM in DEXTROSE 5%-WATER 50 ML IV ONE (08:00)
[2017-07-28 08:01] LABS: CREATINE KINASE MB 13.2 ng/mL (0-5)
[2017-07-28] MEDS: LACTOBACILLUS ACIDOPHILUS/BULGARICUS GRANULES PACKET PO SCH ×3 (08:30→20:05)
[2017-07-28] MEDS: HEPARIN SODIUM,PORCINE 5,000 UNITS/ML VIAL SQ SCH ×2 (08:30→16:47)
[2017-07-28] MEDS: LEVOFLOXACIN 750 MG/D5% WATER 150 ML IV SCH (08:30)
[2017-07-28] MEDS: PANTOPRAZOLE SODIUM 40 MG DR TABLET PO SCH (08:31)
[2017-07-28 09:47] LABS: CREATINE KINASE, TOTAL 20306 U/L (39-308)
[2017-07-28 11:23] VITALS: BP 164/48
[2017-07-28 14:55] VITALS: BP 134/78
[2017-07-28] MEDS: SODIUM CHLORIDE 0.45% 1,000 ML IV SCH (16:46)
[2017-07-28 20:41] VITALS: BP 138/82
[2017-07-29] VITALS (7 sets, daily range): BP systolic 117–145; BP diastolic 76–86
[2017-07-29] MEDS: HEPARIN SODIUM,PORCINE 5,000 UNITS/ML VIAL SQ SCH ×3 (00:43→18:22)
[2017-07-29] MEDS: SODIUM CHLORIDE 0.45% 1,000 ML IV SCH ×2 (02:59→18:21)
[2017-07-29 07:02] LABS: ALANINE AMINOTRANSFERASE 185 U/L (12-78); ALBUMIN 2.5 g/dL (3.4-5.0); ANION GAP 9 mmol/L (8-16); ASPARTATE AMINOTRANSFERASE 467 U/L (15-37); BILIRUBIN,TOTAL 0.3 mg/dL (0.1-1.0); CALCIUM, TOTAL 9.1 mg/dL (8.8-10.5); CARBON DIOXIDE 28 mmol/L (22-29); CHLORIDE 106 mmol/L (98-107); GLOMERULAR FILTR. RATE CALC > 60 mL/min (>60); PHOSPHORUS 3.8 mg/dL (2.5-4.9); POTASSIUM 3.7 mmol/L (3.5-5.1); SODIUM SERUM 143 mmol/L (136-145); TOTAL PROTEIN, SERUM 6.7 g/dL (6.4-8.2); UREA NITROGEN, BLOOD 11 mg/dL (7-18)
[2017-07-29 07:58] LABS: CREATINE KINASE, TOTAL 12987 U/L (39-308)
[2017-07-29 08:39] LABS: CREATINE KINASE MB 6.7 ng/mL (0-5)
[2017-07-29] MEDS: PANTOPRAZOLE SODIUM 40 MG DR TABLET PO SCH (08:39)
[2017-07-29] MEDS: LACTOBACILLUS ACIDOPHILUS/BULGARICUS GRANULES PACKET PO SCH ×3 (08:39→20:46)
[2017-07-29] MEDS: LEVOFLOXACIN 750 MG/D5% WATER 150 ML IV SCH (08:39)
[2017-07-30] MEDS: HEPARIN SODIUM,PORCINE 5,000 UNITS/ML VIAL SQ SCH ×3 (00:27→16:24)
[2017-07-30] MEDS: SODIUM CHLORIDE 0.45% 1,000 ML IV SCH ×2 (03:54→14:57)
[2017-07-30 05:06] VITALS: BP 133/78
[2017-07-30 07:13] LABS: ALANINE AMINOTRANSFERASE 171 U/L (12-78); ALBUMIN 2.6 g/dL (3.4-5.0); ANION GAP 7 mmol/L (8-16); ASPARTATE AMINOTRANSFERASE 378 U/L (15-37); BILIRUBIN,TOTAL 0.3 mg/dL (0.1-1.0); CALCIUM, TOTAL 8.8 mg/dL (8.8-10.5); CARBON DIOXIDE 28 mmol/L (22-29); CHLORIDE 105 mmol/L (98-107); CREATININE 0.85 mg/dL (0.60-1.30); GLOMERULAR FILTR. RATE CALC > 60 mL/min (>60); PHOSPHORUS 3.6 mg/dL (2.5-4.9); POTASSIUM 3.8 mmol/L (3.5-5.1); SODIUM SERUM 140 mmol/L (136-145); TOTAL PROTEIN, SERUM 6.3 g/dL (6.4-8.2); UREA NITROGEN, BLOOD 16 mg/dL (7-18)
[2017-07-30 07:18] VITALS: BP 135/90
[2017-07-30] MEDS ORDERED: MAGNESIUM SULFATE 2 GM in DEXTROSE 5%-WATER 50 ML IV ONE (08:00)
[2017-07-30] MEDS: LEVOFLOXACIN 750 MG/D5% WATER 150 ML IV SCH (08:01)
[2017-07-30] MEDS: LACTOBACILLUS ACIDOPHILUS/BULGARICUS GRANULES PACKET PO SCH ×3 (08:01→20:57)
[2017-07-30] MEDS: PANTOPRAZOLE SODIUM 40 MG DR TABLET PO SCH (08:01)
[2017-07-30 08:03] LABS: CREATINE KINASE MB 3.1 ng/mL (0-5); CREATINE KINASE, TOTAL 9801 U/L (39-308)
[2017-07-30 11:20] VITALS: BP 101/67
[2017-07-30 19:50] VITALS: BP 126/71
[2017-07-31] VITALS (7 sets, daily range): BP systolic 108–127; BP diastolic 70–80
[2017-07-31] MEDS: SODIUM CHLORIDE 0.45% 1,000 ML IV SCH ×3 (00:47→21:29)
[2017-07-31] MEDS: HEPARIN SODIUM,PORCINE 5,000 UNITS/ML VIAL SQ SCH ×4 (00:48→23:18)
[2017-07-31 06:57] LABS: ALANINE AMINOTRANSFERASE 144 U/L (12-78); ALBUMIN 2.5 g/dL (3.4-5.0); ANION GAP 5 mmol/L (8-16); ASPARTATE AMINOTRANSFERASE 254 U/L (15-37); BILIRUBIN,TOTAL 0.3 mg/dL (0.1-1.0); CALCIUM, TOTAL 8.6 mg/dL (8.8-10.5); CARBON DIOXIDE 28 mmol/L (22-29); CHLORIDE 107 mmol/L (98-107); CREATINE KINASE MB 1.6 ng/mL (0-5); CREATININE 0.91 mg/dL (0.60-1.30); GLOMERULAR FILTR. RATE CALC > 60 mL/min (>60); PHOSPHORUS 3.5 mg/dL (2.5-4.9); POTASSIUM 3.9 mmol/L (3.5-5.1); SODIUM SERUM 140 mmol/L (136-145); TOTAL PROTEIN, SERUM 5.9 g/dL (6.4-8.2); UREA NITROGEN, BLOOD 17 mg/dL (7-18)
[2017-07-31 07:03] LABS: CREATINE KINASE, TOTAL 5426 U/L (39-308)
[2017-07-31] MEDS: LACTOBACILLUS ACIDOPHILUS/BULGARICUS GRANULES PACKET PO SCH ×3 (07:42→19:56)
[2017-07-31] MEDS: LEVOFLOXACIN 750 MG/D5% WATER 150 ML IV SCH (07:42)
[2017-07-31] MEDS: PANTOPRAZOLE SODIUM 40 MG DR TABLET PO SCH (07:42)
[2017-08-01 04:41] VITALS: BP 112/67
[2017-08-01] MEDS: SODIUM CHLORIDE 0.45% 1,000 ML IV SCH ×2 (06:55→17:04)
[2017-08-01 07:13] VITALS: BP 122/76
[2017-08-01 07:19] LABS: ANION GAP 7 mmol/L (8-16); CALCIUM, TOTAL 8.6 mg/dL (8.8-10.5); CARBON DIOXIDE 27 mmol/L (22-29); CHLORIDE 107 mmol/L (98-107); CREATININE 0.86 mg/dL (0.60-1.30); GLOMERULAR FILTR. RATE CALC > 60 mL/min (>60); PHOSPHORUS 3.7 mg/dL (2.5-4.9); POTASSIUM 3.5 mmol/L (3.5-5.1); SODIUM SERUM 141 mmol/L (136-145); UREA NITROGEN, BLOOD 12 mg/dL (7-18)
[2017-08-01 07:22] LABS: CREATINE KINASE, TOTAL 3415 U/L (39-308)
[2017-08-01 07:53] LABS: ALANINE AMINOTRANSFERASE 131 U/L (12-78); ALBUMIN 2.4 g/dL (3.4-5.0); ASPARTATE AMINOTRANSFERASE 191 U/L (15-37); BILIRUBIN,TOTAL 0.2 mg/dL (0.1-1.0); TOTAL PROTEIN, SERUM 6.1 g/dL (6.4-8.2)
[2017-08-01] MEDS: LACTOBACILLUS ACIDOPHILUS/BULGARICUS GRANULES PACKET PO SCH ×3 (08:58→20:07)
[2017-08-01] MEDS: HEPARIN SODIUM,PORCINE 5,000 UNITS/ML VIAL SQ SCH ×3 (08:58→23:33)
[2017-08-01] MEDS: PANTOPRAZOLE SODIUM 40 MG DR TABLET PO SCH (08:59)
[2017-08-01] MEDS: LEVOFLOXACIN 750 MG/D5% WATER 150 ML IV SCH (08:59)
[2017-08-01 10:58] VITALS: BP 114/69
[2017-08-01 15:15] VITALS: BP 117/58
[2017-08-01 20:28] VITALS: BP 118/75
[2017-08-02 00:13] VITALS: BP 115/80
[2017-08-02] MEDS: SODIUM CHLORIDE 0.45% 1,000 ML IV SCH (03:50)
[2017-08-02 04:48] VITALS: BP 116/69
[2017-08-02 07:33] VITALS: BP 125/69
[2017-08-02 08:19] LABS: ANION GAP 6 mmol/L (8-16); CALCIUM, TOTAL 8.7 mg/dL (8.8-10.5); CARBON DIOXIDE 29 mmol/L (22-29); CHLORIDE 108 mmol/L (98-107); CREATINE KINASE MB 2.4 ng/mL (0-5); CREATINE KINASE, TOTAL 1941 U/L (39-308); CREATININE 0.98 mg/dL (0.60-1.30); GLOMERULAR FILTR. RATE CALC > 60 mL/min (>60); PHOSPHORUS 3.8 mg/dL (2.5-4.9); SODIUM SERUM 143 mmol/L (136-145); UREA NITROGEN, BLOOD 14 mg/dL (7-18)
[2017-08-02] MEDS: PANTOPRAZOLE SODIUM 40 MG DR TABLET PO SCH (08:29)
[2017-08-02] MEDS: HEPARIN SODIUM,PORCINE 5,000 UNITS/ML VIAL SQ SCH (08:29)
[2017-08-02] MEDS: LACTOBACILLUS ACIDOPHILUS/BULGARICUS GRANULES PACKET PO SCH (08:29)
[2017-08-02] MEDS: LEVOFLOXACIN 750 MG/D5% WATER 150 ML IV SCH (08:29)
[2017-08-02 11:38] VITALS: BP 127/84
== END 2017-08-02 13:30 | disposition home or self-care (01) | DRG 91 ==
LOC: EMS 21:40 → 5N 07-25 02:30
PROVIDERS: ADMIT Internal Medicine; ATTEND Internal Medicine
DX: G92 Toxic encephalopathy (principal); N17.0 Acute kidney failure with tubular necrosis; E87.2 Acidosis; I42.9 Cardiomyopathy, unspecified; I95.9 Hypotension, unspecified; M62.82 Rhabdomyolysis; F20.9 Schizophrenia, unspecified; E83.42 Hypomagnesemia; R65.10 Systemic inflammatory response syndrome (SIRS) of non-infectious origin without acute organ dysfunction; R19.7 Diarrhea, unspecified; I10 Essential (primary) hypertension; K21.9 Gastro-esophageal reflux disease without esophagitis; F17.210 Nicotine dependence, cigarettes, uncomplicated; E11.9 Type 2 diabetes mellitus without complications; R62.7 Adult failure to thrive; F15.90 Other stimulant use, unspecified, uncomplicated; F19.10 Other psychoactive substance abuse, uncomplicated; D64.9 Anemia, unspecified; K80.20 Calculus of gallbladder without cholecystitis without obstruction; Z95.0 Presence of cardiac pacemaker; Z86.73 Personal history of transient ischemic attack (TIA), and cerebral infarction without residual deficits; Z79.899 Other long term (current) drug therapy
CPT/HCPCS: 51702; 70450; 76770; 82570; 83605; 83735; 84100; 84156; 84300; 84443; 87040; 87045; 93005; 96361; 96365; 96368; 97110; 97116; 97162; 97166; 97530; 97535; 99291; G0480; G0481; J0692; J1644; J1956; J2060; J3370; J3411; J3475; J3490; J7030; J7050; J7060

== ENCOUNTER 2017-09-12 09:10 | Inpatient (IN) | payer MEDICARE, OTHER ==
[~2017-09-12] VITALS: Ht 167.6 cm; Wt 68.8 kg
[~2017-09-12 09:10] MED LIST changes: -ASPI81 PO; -BENZ1TAB10 PO; -DIVA500T35 PO; -DOXY100C PO; +LACT10SO75 PO; -LACT30L PO; -LISI-661 PO; +QUET300T71 PO; -RISP2 PO
[2017-09-12] MEDS ORDERED: ANTICOAGULANT PO (09:56)
[2017-09-12 10:33] LABS: BASOPHILS % (AUTO) 0.7 % (0.0-2.0); HEMATOCRIT 42.4 % (41-53); HEMOGLOBIN 14.3 g/dL (13.5-17.5); LYMPHOCYTES # (AUTO) 2.1 K/uL (1.0-4.8); LYMPHOCYTES % (AUTO) 37.2 % (22.0-44.0); MEAN CORPUSCULAR HEMOGLOBIN 30.6 pg (26.0-34.0); MEAN CORPUSCULAR HGB CONC 33.7 G/dL (31.0-37.0); MEAN CORPUSCULAR VOLUME 91 fL (80-100); MONOCYTES # (AUTO) 0.5 K/uL (0.1-1.0); MONOCYTES % (AUTO) 9.1 % (2.0-9.0); NEUTROPHILS # (AUTO) 2.8 K/uL (1.8-7.7); PLATELET COUNT (AUTO) 185 K/uL (150-450); RED BLOOD CELL COUNT(AUTO) 4.66 MIL/uL (4.50-5.90); RED CELL DISTRIBUTION WIDTH 14.5 % (11.5-14.5)
[2017-09-12 10:44] LABS: ANION GAP 9 mmol/L (8-16); CALCIUM, TOTAL 9.6 mg/dL (8.8-10.5); CARBON DIOXIDE 29 mmol/L (22-29); CHLORIDE 102 mmol/L (98-107); CREATININE 0.95 mg/dL (0.60-1.30); GLOMERULAR FILTR. RATE CALC > 60 mL/min (>60); GLUCOSE,RANDOM 119 mg/dL (70-110); POTASSIUM 3.5 mmol/L (3.5-5.1); SODIUM SERUM 140 mmol/L (136-145); UREA NITROGEN, BLOOD 28 mg/dL (7-18)
[2017-09-12 10:45] LABS: INR 1.1 (0.9-1.1); PROTHROMBIN TIME 11.5 SEC (9.4-11.6)
[2017-09-12 10:53] LABS: SALICYLATE 0.8 mg/dL (2.8-20.0); TROPONIN I < 0.02 ng/mL (0.00-0.05)
[2017-09-12 10:56] LABS: B-TYPE NATRIURETIC PEPTIDE 26 pg/mL (0-100)
[2017-09-12 11:00] LABS: AMMONIA 10 umol/L (11-32)
[2017-09-12 11:12] LABS: AMPHET/METH SCREEN,URINE POSITIVE (NEGATIVE); BARBITURATE SCREEN, URINE NEGATIVE (NEGATIVE); BENZODIAZEPINES SCREEN,URINE NEGATIVE (NEGATIVE); CANNABINOID SCREEN,URINE POSITIVE (NEGATIVE); COCAINE SCREEN,URINE NEGATIVE (NEGATIVE); METHADONE SCREEN, URINE NEGATIVE (NEGATIVE); OPIATE SCREEN,URINE NEGATIVE (NEGATIVE); PHENCYCLIDINE SCREEN,URINE NEGATIVE (NEGATIVE)
[2017-09-12 11:17] LABS: APPEARANCE,URINE CLEAR (CLEAR); GLUCOSE, URINE (UA) NEGATIVE (NEGATIVE); KETONES,URINE 15 mg/dL (NEGATIVE); LEUKOCYTE ESTERASE ,URINE NEGATIVE (NEGATIVE); NITRATE,URINE NEGATIVE (NEGATIVE); OCCULT BLOOD,URINE NEGATIVE (NEGATIVE); PH,URINE 5.5 (5.0-8.0); PROTEIN,URINE NEGATIVE (NEGATIVE)
[2017-09-12 11:37] LABS: BILIRUBIN,URINE PRELIM. POSITIVE (NEGATIVE)
[2017-09-12 11:39] LABS: ALANINE AMINOTRANSFERASE 47 U/L (12-78); ALBUMIN 3.7 g/dL (3.4-5.0); ALKALINE PHOSPHATASE 105 U/L (46-116); ASPARTATE AMINOTRANSFERASE 46 U/L (15-37); BILIRUBIN,TOTAL 0.8 mg/dL (0.1-1.0); CREATINE KINASE MB 6.4 ng/mL (0-5); TOTAL PROTEIN, SERUM 8.3 g/dL (6.4-8.2)
[2017-09-12 11:40] LABS: CKMB RELATIVE INDEX 0.6 % (0.0-4.0); CREATINE KINASE, TOTAL 1110 U/L (39-308)
[2017-09-12] MEDS ORDERED: SODIUM CHLORIDE 0.9% 1,000 ML IV ONE ×2 (11:45→13:00)
[2017-09-12 11:54] LABS: ACETAMINOPHEN < 2 mcg/mL (10-30)
[2017-09-12] MEDS ORDERED: 0.9% SODIUM CHLORIDE 10 ML SYRINGE IVP PRN (13:00)
[2017-09-12] MEDS ORDERED: ACETAMINOPHEN 325 MG TABLET PO PRN (13:00)
[2017-09-13 00:15] VITALS: BP 125/67
[2017-09-13] MEDS ORDERED: INFLUENZA VIRUS VACCINE QVS 2017-18 (3YR+)/PF 60 MCG/0.5 ML SYRINGE IM ONE (02:00)
[2017-09-13] MEDS ORDERED: -PHARMACY VACCINE NOTE- MISC ONE (02:00)
[2017-09-13] MEDS ORDERED: ONDANSETRON HCL 4 MG/2 ML VIAL IVP PRN (03:45)
[2017-09-13] MEDS ORDERED: 0.9% SODIUM CHLORIDE 10 ML SYRINGE IVP PRN (03:45)
[2017-09-13] MEDS ORDERED: ACETAMINOPHEN 325 MG TABLET PO PRN (03:45)
[2017-09-13] MEDS ORDERED: MAGNESIUM HYDROXIDE SUSPENSION 30 ML UDCUP PO PRN (03:45)
[2017-09-13] MEDS ORDERED: OxyCODONE HCL/ACETAMINOPHEN 5-325 MG TABLET PO PRN ×2 (03:45)
[2017-09-13 06:14] VITALS: BP 118/67
[2017-09-13 07:17] VITALS: BP 104/56
[2017-09-13 07:45] LABS: BASOPHILS # (AUTO) 0.02 K/uL (0.00-0.20); BASOPHILS % (AUTO) 0.5 % (0.0-2.0); EOSINOPHILS # (AUTO) 0.22 K/uL (0.00-0.70); EOSINOPHILS % (AUTO) 4.59 % (1.0-6.0); HEMATOCRIT 36.2 % (41-53); HEMOGLOBIN 11.9 g/dL (13.5-17.5); LYMPHOCYTES # (AUTO) 2.6 K/uL (1.0-4.8); LYMPHOCYTES % (AUTO) 53.2 % (22.0-44.0); MEAN CORPUSCULAR HEMOGLOBIN 30.3 pg (26.0-34.0); MEAN CORPUSCULAR HGB CONC 32.8 G/dL (31.0-37.0); MEAN CORPUSCULAR VOLUME 92 fL (80-100); MONOCYTES # (AUTO) 0.6 K/uL (0.1-1.0); MONOCYTES % (AUTO) 12.8 % (2.0-9.0); NEUTROPHILS # (AUTO) 1.4 K/uL (1.8-7.7); NEUTROPHILS % (AUTO) 28.8 % (40.0-70.0); PLATELET COUNT (AUTO) 158 K/uL (150-450); RED BLOOD CELL COUNT(AUTO) 3.92 MIL/uL (4.50-5.90); RED CELL DISTRIBUTION WIDTH 14.4 % (11.5-14.5)
[2017-09-13 07:48] LABS: ALANINE AMINOTRANSFERASE 38 U/L (12-78); ALBUMIN 2.9 g/dL (3.4-5.0); ALKALINE PHOSPHATASE 83 U/L (46-116); ANION GAP 12 mmol/L (8-16); ASPARTATE AMINOTRANSFERASE 34 U/L (15-37); BILIRUBIN,TOTAL 0.4 mg/dL (0.1-1.0); CALCIUM, TOTAL 8.6 mg/dL (8.8-10.5); CARBON DIOXIDE 23 mmol/L (22-29); CHLORIDE 108 mmol/L (98-107); GLOMERULAR FILTR. RATE CALC > 60 mL/min (>60); GLUCOSE,RANDOM 97 mg/dL (70-110); POTASSIUM 3.4 mmol/L (3.5-5.1); SODIUM SERUM 143 mmol/L (136-145); TOTAL PROTEIN, SERUM 6.7 g/dL (6.4-8.2); UREA NITROGEN, BLOOD 22 mg/dL (7-18)
[2017-09-13] MEDS: HEPARIN SODIUM,PORCINE 5,000 UNITS/ML VIAL SQ SCH ×2 (08:35→21:08)
[2017-09-13] MEDS: PANTOPRAZOLE SODIUM 40 MG/VIAL IVP SCH (08:36)
[2017-09-13] MEDS: DOCUSATE SODIUM 100 MG CAPSULE PO SCH ×2 (08:36→21:08)
[2017-09-13 11:09] VITALS: BP 101/62
[2017-09-13 15:45] VITALS: BP 108/52
[2017-09-13] MEDS ORDERED: POTASSIUM CHLORIDE 20 MEQ ER TABLET PO ONE ×2 (17:00→21:00)
[2017-09-13 20:07] VITALS: BP 115/73
[2017-09-14] MEDS ORDERED: POTASSIUM CHLORIDE 20 MEQ ER TABLET PO ONE (01:00)
[2017-09-14 01:15] VITALS: BP 115/67
[2017-09-14 05:30] VITALS: BP 127/89
[2017-09-14 07:48] VITALS: BP 122/59
[2017-09-14 07:53] LABS: BASOPHILS % (AUTO) 0.7 % (0.0-2.0); EOSINOPHILS % (AUTO) 4.6 % (1.0-6.0); HEMATOCRIT 37.5 % (41-53); HEMOGLOBIN 12.5 g/dL (13.5-17.5); LYMPHOCYTES # (AUTO) 2.9 K/uL (1.0-4.8); LYMPHOCYTES % (AUTO) 57.4 % (22.0-44.0); MEAN CORPUSCULAR HEMOGLOBIN 30.6 pg (26.0-34.0); MEAN CORPUSCULAR HGB CONC 33.3 G/dL (31.0-37.0); MEAN CORPUSCULAR VOLUME 92 fL (80-100); MONOCYTES # (AUTO) 0.6 K/uL (0.1-1.0); MONOCYTES % (AUTO) 11.4 % (2.0-9.0); NEUTROPHILS # (AUTO) 1.3 K/uL (1.8-7.7); NEUTROPHILS % (AUTO) 25.9 % (40.0-70.0); PLATELET COUNT (AUTO) 158 K/uL (150-450); RED BLOOD CELL COUNT(AUTO) 4.07 MIL/uL (4.50-5.90); RED CELL DISTRIBUTION WIDTH 14.4 % (11.5-14.5)
[2017-09-14] MEDS: HEPARIN SODIUM,PORCINE 5,000 UNITS/ML VIAL SQ SCH ×2 (08:31→21:04)
[2017-09-14] MEDS: PANTOPRAZOLE SODIUM 40 MG/VIAL IVP SCH (08:31)
[2017-09-14] MEDS: DOCUSATE SODIUM 100 MG CAPSULE PO SCH ×2 (08:32→21:04)
[2017-09-14 09:10] LABS: ANION GAP 11 mmol/L (8-16); CALCIUM, TOTAL 8.8 mg/dL (8.8-10.5); CARBON DIOXIDE 25 mmol/L (22-29); CHLORIDE 109 mmol/L (98-107); GLOMERULAR FILTR. RATE CALC > 60 mL/min (>60); GLUCOSE,RANDOM 92 mg/dL (70-110); POTASSIUM 4.3 mmol/L (3.5-5.1); SODIUM SERUM 145 mmol/L (136-145)
[2017-09-14 09:26] LABS: UREA NITROGEN, BLOOD 17 mg/dL (7-18)
[2017-09-14 11:52] VITALS: BP 125/67
[2017-09-14 16:02] VITALS: BP 126/67
[2017-09-14 20:18] VITALS: BP 122/70
[2017-09-15 00:01] VITALS: BP 132/79
[2017-09-15 07:18] LABS: BASOPHILS # (AUTO) 0.02 K/uL (0.00-0.20); BASOPHILS % (AUTO) 0.5 % (0.0-2.0); EOSINOPHILS # (AUTO) 0.27 K/uL (0.00-0.70); EOSINOPHILS % (AUTO) 5.78 % (1.0-6.0); HEMOGLOBIN 12.4 g/dL (13.5-17.5); LYMPHOCYTES # (AUTO) 2.5 K/uL (1.0-4.8); LYMPHOCYTES % (AUTO) 53.2 % (22.0-44.0); MEAN CORPUSCULAR HEMOGLOBIN 30.3 pg (26.0-34.0); MEAN CORPUSCULAR HGB CONC 32.7 G/dL (31.0-37.0); MEAN CORPUSCULAR VOLUME 93 fL (80-100); MONOCYTES # (AUTO) 0.5 K/uL (0.1-1.0); MONOCYTES % (AUTO) 10.8 % (2.0-9.0); NEUTROPHILS # (AUTO) 1.4 K/uL (1.8-7.7); NEUTROPHILS % (AUTO) 29.8 % (40.0-70.0); PLATELET COUNT (AUTO) 148 K/uL (150-450); RED BLOOD CELL COUNT(AUTO) 4.09 MIL/uL (4.50-5.90); RED CELL DISTRIBUTION WIDTH 14.2 % (11.5-14.5)
[2017-09-15 07:19] LABS: ANION GAP 10 mmol/L (8-16); CALCIUM, TOTAL 9.1 mg/dL (8.8-10.5); CARBON DIOXIDE 26 mmol/L (22-29); CHLORIDE 107 mmol/L (98-107); CREATININE 1.02 mg/dL (0.60-1.30); GLOMERULAR FILTR. RATE CALC > 60 mL/min (>60); GLUCOSE,RANDOM 95 mg/dL (70-110); SODIUM SERUM 143 mmol/L (136-145); UREA NITROGEN, BLOOD 18 mg/dL (7-18)
[2017-09-15] MEDS: HEPARIN SODIUM,PORCINE 5,000 UNITS/ML VIAL SQ SCH ×2 (08:10→20:22)
[2017-09-15] MEDS: PANTOPRAZOLE SODIUM 40 MG/VIAL IVP SCH (08:10)
[2017-09-15] MEDS: DOCUSATE SODIUM 100 MG CAPSULE PO SCH ×2 (08:11→20:22)
[2017-09-15 08:13] VITALS: BP 136/77
[2017-09-15 12:00] VITALS: BP 121/73
[2017-09-15 16:25] VITALS: BP 130/84
[2017-09-15 19:59] VITALS: BP 129/71
[2017-09-15 23:56] VITALS: BP 121/72
[2017-09-16 05:30] VITALS: BP 127/94
[2017-09-16 07:34] VITALS: BP 138/86
[2017-09-16] MEDS: HEPARIN SODIUM,PORCINE 5,000 UNITS/ML VIAL SQ SCH ×2 (09:59→20:21)
[2017-09-16] MEDS: DOCUSATE SODIUM 100 MG CAPSULE PO SCH ×2 (09:59→20:21)
[2017-09-16] MEDS: PANTOPRAZOLE SODIUM 40 MG/VIAL IVP SCH (10:06)
[2017-09-16 11:41] VITALS: BP_SYST 125; BP_SYST 97; BP_DIAS 49; BP_DIAS 79
[2017-09-16 16:28] VITALS: BP 124/72
[2017-09-16 18:32] LABS: GLUCOMETER DEV NAME(LOC) 6N 2D; GLUCOSE,POINT OF CARE 89 MG/DL (70-110)
[2017-09-16 18:32] LABS: GLUCOMETER DEV NAME(LOC) 6N 2D; GLUCOSE,POINT OF CARE 100 MG/DL (70-110)
[2017-09-16 20:06] VITALS: BP 121/82
[2017-09-16 23:04] VITALS: BP 125/74
[2017-09-17 04:17] VITALS: BP 129/90
[2017-09-17 07:52] VITALS: BP 143/80
[2017-09-17] MEDS: HEPARIN SODIUM,PORCINE 5,000 UNITS/ML VIAL SQ SCH ×2 (08:34→19:31)
[2017-09-17] MEDS: PANTOPRAZOLE SODIUM 40 MG/VIAL IVP SCH (08:34)
[2017-09-17] MEDS: DOCUSATE SODIUM 100 MG CAPSULE PO SCH ×2 (08:34→19:31)
[2017-09-17 11:07] VITALS: BP 132/73
[2017-09-17 15:32] VITALS: BP 122/60
[2017-09-17 20:10] VITALS: BP 130/71
[2017-09-18 00:02] VITALS: BP 125/59
[2017-09-18 04:47] VITALS: BP 128/64
[2017-09-18 07:34] VITALS: BP 132/70
[2017-09-18] MEDS: PANTOPRAZOLE SODIUM 40 MG/VIAL IVP SCH (08:26)
[2017-09-18] MEDS: DOCUSATE SODIUM 100 MG CAPSULE PO SCH (08:27)
[2017-09-18] MEDS: HEPARIN SODIUM,PORCINE 5,000 UNITS/ML VIAL SQ SCH (08:27)
[2017-09-18 12:22] VITALS: BP 117/59
[2017-09-18 16:46] VITALS: BP 113/72
== END 2017-09-18 18:20 | disposition home or self-care (01) | DRG 917 ==
LOC: EMS 09:11 → 5S 20:07 → 6N 09-13 19:45
PROVIDERS: ADMIT Internal Medicine; ATTEND Family Medicine
DX: T43.621A Poisoning by amphetamines, accidental (unintentional), initial encounter (principal); G93.41 Metabolic encephalopathy; M62.82 Rhabdomyolysis; F20.9 Schizophrenia, unspecified; E11.9 Type 2 diabetes mellitus without complications; I10 Essential (primary) hypertension; F17.210 Nicotine dependence, cigarettes, uncomplicated; Z86.73 Personal history of transient ischemic attack (TIA), and cerebral infarction without residual deficits; F15.10 Other stimulant abuse, uncomplicated; K21.9 Gastro-esophageal reflux disease without esophagitis; E86.0 Dehydration; M54.2 Cervicalgia; R33.9 Retention of urine, unspecified
CPT/HCPCS: 70450; 72125; 82962; 90471; 93005; 96360; 96361; 97112; 97116; 97162; 97167; 97530; 97535; 97760; 99285; C9113; G0480; G0481; J1644; J7030